=== PATIENT | male | born 1955 | race Caucasian/White ===

== ENCOUNTER 2022-05-25 11:53 | Emergency (ER) | payer MEDICARE, BC, SELFPAY ==
--- NOTE | ~2022-05-25 | CT_ITS ---
EXAMINATION: CT lumbar spine wo con DATE: 05/25/2022 14:04 INDICATION: Low back pain for 3 days TECHNIQUE: Computed tomography (CT) of the lumbar spine was performed without intravenous contrast. A utomated exposure control and iterative reconstruction technique were employed. Exam dose: 454.60 mG y-cm total exam DLP. COMPARISON: None FINDINGS: Normal alignment lumbar spine. No fracture or bone destruction, spondylolysis or spondyloli sthesis. No primary lumbar spinal stenosis. There is mild to moderate degenerative spurring of the lumbar spine. The lumbar and lumbosacral inter spaces appear relatively well preserved. There is degenerative change at the apophyseal joints. IMPRESSION: Mild degenerative change Reviewed, dictated and finalized at [facility] Reviewed, dictated and finalized at [facility] [employer]ICAL SERVICES MANAGER IMPRESSION: Mild degenerative change
[2022-05-25 11:57] VITALS: BP 188/84; PULSE 80; RESP 20; TEMP 36.7; O2SAT 98
--- NOTE | 2022-05-25 13:41 | ED.BACK ---
HPI - Back Pain/Injury General Chief Complaint: Back Pain/Injury Stated Complaint: cold symptoms Time Seen by Provider: 05/25/22 12:11 Source: patient Mode of arrival: ambulatory Limitations: no limitations History of Present Illness HPI Narrative: Patient is a 67 y/o male who presents to the ED with c/o low back pain. Patient reports he developed pain in his low back on Thursday. Pain initially began around level of waistline and has radiated upward and slightly to the right over the last couple of days. He denies any injury, fall, strenuous activity, heavy lifting. He has been taking Jenny back and body and using a heating pad with temporary relief. Patient denies history of similar back pain. Denies abdominal pain, nausea, vomiting, fevers, bowel or bladder incontinence, numbness, weakness. Related Data Home Medications Medication Instructions Recorded Confirmed Panax ginseng root 518 mg capsule 518 mg PO .QD 12/31/21 12/31/21 ascorbic acid (vitamin C) 500 mg 500 mg PO .QD 12/31/21 12/31/21 capsule atorvastatin 20 mg tablet 20 mg PO .QD 12/31/21 12/31/21 cholecalciferol (vitamin D3) 125 125 mcg PO .QD 12/31/21 12/31/21 mcg (5,000 unit) capsule cinnamon bark 500 mg capsule 500 mg PO .QD 12/31/21 12/31/21 (Cinnamon) metformin 500 mg tablet,extended 500 mg PO TID 12/31/21 12/31/21 release 24hr omega-3 fatty acids 1,250 mg 1,250 mg PO .QD 12/31/21 12/31/21 capsule prasterone (dhea) 25 mg capsule 25 mg PO .QD 12/31/21 12/31/21 (DHEA) testosterone 20.25 mg/1.25 gram 4 pump topical .QD 12/31/21 12/31/21 (1.62 %) transdermal gel pump turmeric 400 mg capsule 400 mg PO .QD 12/31/21 12/31/21 Allergies Allergy/AdvReac Type Severity Reaction Status Date / Time No Known Allergies Allergy Verified 12/31/21 15:13 Review of Systems Review of Systems: CONSTITUTIONAL: Denies fever, chills, or sweats. CARDIOVASCULAR: Denies chest pain. RESPIRATORY: Denies dyspnea. GASTROINTESTINAL: Denies incontinence, abdominal pain, nausea, vomiting, or diarrhea. GENITOURINARY: Denies incontinence, dysuria or hematuria. MUSCULOSKELETAL: See HPI. NEUROLOGIC: See HPI. All systems reviewed & are unremarkable except as noted in HPI and below PMFSH Past Medical History Medical History (Updated 05/25/22 @ 15:43 by Yaz English PA-C) Anemia Cardiomegaly Diabetes type 2, uncontrolled Essential (primary) hypertension Histoplasmosis Impetigo Mixed hyperlipidemia Thyroid enlargement Surgical History Surgical History (Updated 05/25/22 @ 14:06 by Yaz English PA-C) History of colonoscopy Family History Family History Father Hypertension Mother Hypertension Family history of diabetes mellitus in first degree relative Other Family history of malignant neoplasm Social History Social History Smoking status: Never smoker Alcohol intake: current Exam Narrative: GENERAL: Well appearing, well-nourished, non-toxic, in no acute distress. HEAD: Normocephalic, atraumatic. NECK: Supple. No adenopathy, no masses. RESPIRATORY: Airway patent, respirations nonlabored. Clear to auscultation bilaterally, no rales, rhonchi, wheezing. CARDIOVASCULAR: Regular rate and rhythm without murmurs, rubs, or gallops. Radial pulses 2+ and equal bilaterally. ABDOMINAL: Soft, nontender, nondistended, no hepatosplenomegaly. Normoactive BS. MUSCULOSKELETAL: Moves all extremities. Strength/ROM intact without gross deformities. Strength equal in lower extremities bilaterally. Minimal lower lumbar midline spinal tenderness. No step-offs or palpable bony deformities. Mild right-sided paraspinal muscle tenderness in lumbosacral region, reproducing pain. SKIN: Warm, dry, normal color. No rashes. NEURO: A&O X3. Speech clear. Cranial nerves II-XII grossly intact. Steady gait. No ataxic movements. PSYCHIATRIC: Ap
[2022-05-25] MEDS: KETOROLAC 30 MG/ML VIAL (*BKC) IM (14:05)
== END 2022-05-25 16:50 | disposition home or self-care (01) ==
PROVIDERS: Emergency Provider Physician Assistant; PCP Family Medicine
DX: S39.012A Strain of muscle, fascia and tendon of lower back, initial encounter (principal); E11.9 Type 2 diabetes mellitus without complications; I10 Essential (primary) hypertension; E78.2 Mixed hyperlipidemia; E04.9 Nontoxic goiter, unspecified; Z86.2 Personal history of diseases of the blood and blood-forming organs and certain disorders involving the immune mechanism; Z79.84 Long term (current) use of oral hypoglycemic drugs; M47.816 Spondylosis without myelopathy or radiculopathy, lumbar region; X58.XXXA Exposure to other specified factors, initial encounter
CPT/HCPCS: 72131; 96372; 99284; J1885

== ENCOUNTER 2024-11-02 12:06 | Observation (INO) | payer MEDICARE, BC, SELFPAY ==
--- NOTE | ~2024-11-02 | CT_ITS ---
CT brain wo con Ordering provider: Raquel West PA-C History: 69 years Male with . headache . Comparison: November 02, 2018 Technique: CT of the head without contrast. Radiation reduction technique utilized. The dose-length p roduct was 681 mGy-cm. FINDINGS: BRAIN PARENCHYMA AND CSF SPACES: No midline shift, mass effect or hemorrhage. The brain parenchyma a nd CSF spaces are otherwise normal. VISUALIZED PARANASAL SINUSES: Bilateral maxillary and left sphenoid sinus disease. MASTOIDS: Well aerated. BONES: The bones appear intact. SOFT TISSUES: Visualized nasopharynx is normal. Superficial soft tissues are normal. IMPRESSION: No acute intracranial findings. Reviewed, dictated and finalized at location A.
[2024-11-02 12:10] VITALS: BP 173/79; PULSE 67; RESP 16; TEMP 36.9; O2SAT 99
--- NOTE | 2024-11-02 13:19 | ECG_ITS ---
Test Date: 2024-11-02 13:39:02 Measurements Intervals [place] Rate: 62 P: 62 VT: 151 QRS: -67 QRSD: 162 T: 31 QT: 435 QTc: 444 Interpretive Statements SINUS RHYTHM POSSIBLE LEFT ATRIAL ENLARGEMENT RIGHT BUNDLE BRANCH BLOCK LEFT ANTERIOR FASCICULAR BLOCK ABNORMAL ECG No previous ECG available for comparison Electronically Signed On 11-02-2024 14:30:22 CDT by Jr Lee D.O.
--- NOTE | 2024-11-02 13:32 | ED_ITS ---
HPI - General Adult General Chief complaint: Nausea/Vomiting/Diarrhea <Raquel West PA-C - Last Filed: 11/07/24 17:19> Stated complaint: headache and vomiting since yesterday r/t heat <Raquel West PA-C - Last Filed: 11/07/24 17:19> Time Seen by Provider: 11/02/24 13:15 <Raquel West PA-C - Last Filed: 11/07/24 17:19> Source: patient <Raquel West PA-C - Last Filed: 11/07/24 17:19> Mode of arrival: ambulatory <Raquel West PA-C - Last Filed: 11/07/24 17:19> Limitations: no limitations <Raquel West PA-C - Last Filed: 11/07/24 17:19> History of Present Illness HPI narrative: This is a 69 year old male that presents to the ER for possible dehydration. Reports he worked outside all day yesterday. Reports lightheadedness, headache, nausea, vomiting. Denies chest pain, shortness of breath. <Raquel West PA-C - Last Filed: 11/07/24 17:19> Related Data Home medications: Home Medications ?Medication ?Instructions ?Recorded ?Confirmed ?Last Taken ?Type Panax ginseng root 518 mg capsule 518 mg PO .QD 12/31/21 11/03/24 11/02/24 History cinnamon bark 500 mg capsule 500 mg PO .QD 12/31/21 11/03/24 11/02/24 History (Cinnamon) omega-3 fatty acids 1,250 mg 1,250 mg PO .QD 12/31/21 11/03/24 11/02/24 History capsule turmeric 400 mg capsule 400 mg PO .QD 12/31/21 11/03/24 11/02/24 History multivit with min #53-FA 200 1 cap PO DAILY 10/19/23 11/03/24 11/02/24 History mcg-vit K 1,000 mcg-coQ10 10 mg capsule prasterone (DHEA) 25 mg tablet 25 mg PO DAILY 06/07/24 11/03/24 11/02/24 History (DHEA) testosterone 2 pump topical .QD 06/07/24 11/03/24 11/02/24 History coenzyme Q10 200 mg capsule (Co 200 mg PO DAILY 08/16/24 11/03/24 11/02/24 History Q-10) saw palmetto 500 mg capsule 500 mg PO DAILY 08/16/24 11/03/24 11/02/24 History zinc sulfate 50 mg zinc (220 mg) 50 mg PO DAILY 08/16/24 11/03/24 11/02/24 History capsule (Orazinc) metformin 500 mg tablet,extended 500 mg PO TID 08/30/24 11/03/24 11/02/24 History release 24hr (osmotic) atorvastatin 20 mg tablet 10 mg PO DAILY 11/03/24 11/03/24 11/02/24 History <Raquel West PA-C - Last Filed: 11/07/24 17:19> Allergies/adverse reactions: Allergies Allergy/AdvReac Type Severity Reaction Status Date / Time mold Allergy Mild Unknown Verified 11/02/24 12:12 <Raquel West PA-C - Last Filed: 11/07/24 17:19> Review of Systems 2 Review of Systems: All systems reviewed & are unremarkable except as noted in HPI and below <Raquel West PA-C - Last Filed: 11/07/24 17:19> [facility] Past Medical History Medical History: Medical History Low 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 BMI 26.0-26.9,adult Lymphoma involving lung Thyroid enlargement Mixed hyperlipidemia Impetigo Histoplasmosis Essential (primary) hypertension Diabetes type 2, uncontrolled Cardiomegaly Anemia <Raquel West PA-C - Last Filed: 11/07/24 17:19> Surgical History Surgical History: Surgical History Hx of ultrasound guided needle biopsy of lung History of colonoscopy <Raquel West PA-C - Last Filed: 11/07/24 17:19> Family History Family History: Family History Father Hypertension FH: kidney cancer Diabetes mellitus Mother Hypertension Family history of diabetes mellitus in first degree relative Brain cancer Diabetes mellitus Sibling Diabetes mellitus Other Family history of malignant neoplasm <Raquel West PA-C - Last Filed: 11/07/24 17:19> Social History Social History: Social History Smoking status: Never smoker Second hand tobacco smoke exposure: No Alcohol intake: never Substance use: never Substance use type: does not use Do You Feel Safe in your Home?: Yes Lack of Transportation: No Lack of Food: Never True Current Housing: I Have Housing Concerned About Future Housing: No Difficulty Paying Gas/Electric Bills: No Difficulty Paying for Meds: No Currently Unemployed: No Education: High School Diploma/GED Difficulty w/ Childcare or Family Care: No Living arrangements: with family Occupation/Education: retired 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 Gender identity (if verbalized by the patient): Male Spiritual care concerns: Yes (Prataylor) <Raquel West PA-C - Last Filed: 11/07/24 17:19> Exam 2 Narrative: GENERAL: Well-appearing, well-nourished, and in no acute distress. HEAD: Normocephalic, atraumatic. EYES: EOMI. ENT: Nares clear, no rhinorrhea or epistaxis. Mucous membranes moist. Oropharynx without tonsillar hypertrophy exudate or other lesions. Bilateral TMs pearly goodwin non-bulging NECK: Supple. No adenopathy or masses. CHEST: Clear to auscultation. No respiratory distress. No wheezes rales or rhonchi HEART: Regular rate and rhythm. No murmur heard. Normal peripheral pulses. EXTREMITIES: Normal range of motion. No edema. Strength equal in bilateral upper and lower extremities (5/5) SKIN: Warm, dry, no rash. NEURO: No focal deficits. Alert and oriented x3. CN II-XII grossly intact PSYCH: Normal mood and affect <Raquel West PA-C - Last Filed: 11/07/24 17:19> Course Course Emergency Course: Patient reports some improvement after migraine cocktail, although is still endorsing headache. He does report history of migraines <Raquel West PA-C - Last Filed: 11/07/24 17:19> BRAKE PRESS OPERATOR/PA Physician Supervision For this patient encounter, I reviewed the BRAKE PRESS OPERATOR or PA documentation, treatment plan, and medical decision making <Duran Paige MD - Last Filed: 11/02/24 22:29> Consultations Consultation #1: Spoke with hospitalist about patient and workup who accepts admission < Raquel West PA-C - Last Filed: 11/07/24 17:19> Date: 11/02/24 <Raquel West PA-C - Last Filed: 11/07/24 17:19> Vital Signs Vital signs: Vital Signs Temperature 98.4 F 11/02/24 12:10 Pulse Rate 67 11/02/24 12:10 Respiratory Rate 16 11/02/24 12:10 Blood Pressure 173/79 H 11/02/24 12:10 Pulse Oximetry 99 11/02/24 12:10 Oxygen Delivery Room Air 11/02/24 12:10 Temperature 99.5 F 11/03/24 05:26 Pulse Rate 62 11/03/24 08:00 Respiratory Rate 14 11/03/24 08:00 Blood Pressure 128/75 11/03/24 05:26 Pulse Oximetry 100 11/03/24 08:00 Oxygen Delivery Room Air 11/03/24 08:00 <Raquel West PA-C - Last Filed: 11/07/24 17:19> Vital Signs Temperature 98.4 F 11/02/24 12:10 Pulse Rate 67 11/02/24 12:10 Respiratory Rate 16 11/02/24 12:10 Blood Pressure 173/79 H 11/02/24 12:10 Pulse Oximetry 99 11/02/24 12:10 Oxygen Delivery Room Air 11/02/24 12:10 Temperature 99.5 F 11/03/24 05:26 Pulse Rate 62 11/03/24 08:00 Respiratory Rate 14 11/03/24 08:00 Blood Pressure 128/75 11/03/24 05:26 Pulse Oximetry 100 11/03/24 08:00 Oxygen Delivery Room Air 11/03/24 08:00 <Duran Paige MD - Last Filed: 11/02/24 22:29> Medical Decision Making MDM Narrative Medical decision making narrative: Patient presents the emergency department for headache ongoing since last night. Reports he had worked outside most of the day. Endorses feeling dehydrated. Does report history of migraine headaches. He is afebrile and nontoxic appearing. His vitals are stable. CBC with white blood cell count of 10.2. Metabolic panel with mild evidence of dehydration. Urine also showing 2+ ketones. CT brain without acute findings. Patient was given migraine cocktail with some relief, although still endorsing discomfort, continued headache. Hospitalist was consulted for admission for further management/evaluation <Raquel West PA-C - Last Filed: 11/07/24 17:19> Differential Diagnosis Differential Diagnosis: Migraine, tension headache, dehydration, electrolyte derangement <Raquel West PA-C - Last Filed: 11/07/24 17:19> Vital Signs Vital Signs: Vital Signs Temperature 98.4 F 11/02/24 12:10 Pulse Rate 67 11/02/24 12:10 Respiratory Rate 16 11/02/24 12:10 Blood Pressure 173/79 H 11/02/24 12:10 Pulse Oximetry 99 11/02/24 12:10 Oxygen Delivery Room Air 11/02/24 12:10 Temperature 99.5 F 11/03/24 05:26 Pulse Rate 62 11/03/24 08:00 Respiratory Rate 14 11/03/24 08:00 Blood Pressure 128/75 11/03/24 05:26 Pulse Oximetry 100 11/03/24 08:00 Oxygen Delivery Room Air 11/03/24 08:00 <Raquel West PA-C - Last Filed: 11/07/24 17:19> Vital Signs Temperature 98.4 F 11/02/24 12:10 Pulse Rate 67 11/02/24 12:10 Respiratory Rate 16 11/02/24 12:10 Blood Pressure 173/79 H 11/02/24 12:10 Pulse Oximetry 99 11/02/24 12:10 Oxygen Delivery Room Air 11/02/24 12:10 Temperature 99.5 F 11/03/24 05:26 Pulse Rate 62 11/03/24 08:00 Respiratory Rate 14 11/03/24 08:00 Blood Pressure 128/75 11/03/24 05:26 Pulse Oximetry 100 11/03/24 08:00 Oxygen Delivery Room Air 11/03/24 08:00 <Duran Paige MD - Last Filed: 11/02/24 22:29> Lab Data Lab results reviewed: Yes I reviewed the patient's lab results. <Raquel West PA-C - Last Filed: 11/07/24 17:19> Result diagrams: 11/03/24 06:55 11/03/24 06:55 <Raquel West PA-C - Last Filed: 11/07/24 17:19> Labs: Lab Results 11/02/24 11/02/24 11/02/24 Range/Units 13:34 14:21 18:42 WBC 10.8 H (4.5-10.0) K/mm3 RBC 4.88 (4.6-6.20) M/mm3 Hgb 14.6 (14.0-18.0) g/dL Hct 44.5 (42.0-52.0) % MCV 91.2 (80-100) fl MCH 29.9 (26-34) pg MCHC 32.8 (32-36) g/dl RDW 12.9 (11.5-14.5) % Plt Count 203 (150-375) k/mm3 MPV 9.6 (7.4-10.4) fl Immature Gran % (Auto) 0.3 (0-0.5) % Neut % (Auto) 91.4 H (45.5-73.1) % Lymph % (Auto) 4.9 L (18.3-44.2) % [place] % (Auto) 3.3 (2.6-8.5) % Eos % (Auto) 0.0 (0-4.4) % Baso % (Auto) 0.1 L (0.2-1.2) % Lymph # (Auto) 0.53 L (0.9-3.2) K/mm3 [place] # (Auto) 0.4 (0.1-0.6) K/mm3 Eos # (Auto) 0.0 (0-0.3) K/mm3 Baso # (Auto) 0.0 (0.0-0.1) K/mm3 Abs Immat Gran (auto) 0.03 (0.00-0.031) K/mm3 Absolute Neuts (auto) 9.9 H (1.3-6.7) K/mm3 Absolute Nucleated RBC 0.000 (0.0-0.012) K/mm3 Nucleated RBC % 0.0 (0.0-0.2) % ESR 8 (0-20) mm/hr Sodium 140 (137-145) mmol/L Potassium 4.2 (3.4-5.0) mmol/L Chloride 107 (98-107) mmol/L Carbon Dioxide 21 L (22-30) mmol/L Anion Gap 12 (4-12) mmol/L BUN 22 H (9-20) mg/dL Creatinine 0.79 (0.7-1.3) mg/dL Estim Creat Clear Calc 67 ml/min Estimated GFR > 60 (59 - ) Glucose 199 H (65-110) mg/dL POC Capillary Glucose 146 H (65-105) mg/dl Hemoglobin A1c 6.3 H (<5.7) % Calcium 9.7 (8.4-10.2) mg/dL Magnesium 1.7 (1.6-2.3) mg/dL Total Bilirubin 0.5 (0.2-1.3) mg/dL AST 27 (17-59) U/L ALT 32 (6-50) U/L Alkaline Phosphatase 51 (38-126) U/L Total Creatine Kinase 209 H (55-170) U/L C-Reactive Protein < 0.5 (<1.0) mg/dL Total Protein 6.9 (6.3-8.2) g/dL Albumin 4.3 (3.5-5.1) g/dL Lipase 363 H (23-300) U/L Urine Color Yellow (Yellow) Urine Appearance Clear (Clear) Urine pH 5.5 (5.0-9.0) Ur Specific [place] 1.028 (1.001-1.035) Urine Protein 1+ H (Negative) mg/dL Urine Glucose (UA) 3+ H (Negative) mg/dL Urine Ketones 2+ H (Negative) mg/dL Ur Blood (Man) Negative (Negative) Urine Nitrate Negative (Negative) Urine Bilirubin Negative (Negative) Urine Urobilinogen 0.2 (<2.0) mg/dL Leukocyte Esterase Rfl Negative (Negative) AMAYA/UL Urine RBC 0-2 (0-2) /hpf Urine WBC 0-5 (0-3) /hpf Ur Squamous Epith Cells None seen (Few) /hpf Urine Bacteria None seen /hpf Urine Casts 0-2 <Raquel West PA-C - Last Filed: 11/07/24 17:19> Lab Results 11/02/24 11/02/24 11/02/24 Range/Units 13:34 14:21 18:42 WBC 10.8 H (4.5-10.0) K/mm3 RBC 4.88 (4.6-6.20) M/mm3 Hgb 14.6 (14.0-18.0) g/dL Hct 44.5 (42.0-52.0) % MCV 91.2 (80-100) fl MCH 29.9 (26-34) pg MCHC 32.8 (32-36) g/dl RDW 12.9 (11.5-14.5) % Plt Count 203 (150-375) k/mm3 MPV 9.6 (7.4-10.4) fl Immature Gran % (Auto) 0.3 (0-0.5) % Neut % (Auto) 91.4 H (45.5-73.1) % Lymph % (Auto) 4.9 L (18.3-44.2) % [place] % (Auto) 3.3 (2.6-8.5) % Eos % (Auto) 0.0 (0-4.4) % Baso % (Auto) 0.1 L (0.2-1.2) % Lymph # (Auto) 0.53 L (0.9-3.2) K/mm3 [place] # (Auto) 0.4 (0.1-0.6) K/mm3 Eos # (Auto) 0.0 (0-0.3) K/mm3 Baso # (Auto) 0.0 (0.0-0.1) K/mm3 Abs Immat Gran (auto) 0.03 (0.00-0.031) K/mm3 Absolute Neuts (auto) 9.9 H (1.3-6.7) K/mm3 Absolute Nucleated RBC 0.000 (0.0-0.012) K/mm3 Nucleated RBC % 0.0 (0.0-0.2) % ESR 8 (0-20) mm/hr Sodium 140 (137-145) mmol/L Potassium 4.2 (3.4-5.0) mmol/L Chloride 107 (98-107) mmol/L Carbon Dioxide 21 L (22-30) mmol/L Anion Gap 12 (4-12) mmol/L BUN 22 H (9-20) mg/dL Creatinine 0.79 (0.7-1.3) mg/dL Estim Creat Clear Calc 67 ml/min Estimated GFR > 60 (59 - ) Glucose 199 H (65-110) mg/dL POC Capillary Glucose 146 H (65-105) mg/dl Hemoglobin A1c 6.3 H (<5.7) % Calcium 9.7 (8.4-10.2) mg/dL Magnesium 1.7 (1.6-2.3) mg/dL Total Bilirubin 0.5 (0.2-1.3) mg/dL AST 27 (17-59) U/L ALT 32 (6-50) U/L Alkaline Phosphatase 51 (38-126) U/L Total Creatine Kinase 209 H (55-170) U/L C-Reactive Protein < 0.5 (<1.0) mg/dL Total Protein 6.9 (6.3-8.2) g/dL Albumin 4.3 (3.5-5.1) g/dL Lipase 363 H (23-300) U/L Urine Color Yellow (Yellow) Urine Appearance Clear (Clear) Urine pH 5.5 (5.0-9.0) Ur Specific [place] 1.028 (1.001-1.035) Urine Protein 1+ H (Negative) mg/dL Urine Glucose (UA) 3+ H (Negative) mg/dL Urine Ketones 2+ H (Negative) mg/dL Ur Blood (Man) Negative (Negative) Urine Nitrate Negative (Negative) Urine Bilirubin Negative (Negative) Urine Urobilinogen 0.2 (<2.0) mg/dL Leukocyte Esterase Rfl Negative (Negative) AMAYA/UL Urine RBC 0-2 (0-2) /hpf Urine WBC 0-5 (0-3) /hpf Ur Squamous Epith Cells None seen (Few) /hpf Urine Bacteria None seen /hpf Urine Casts 0-2 <Duran Paige MD - Last Filed: 11/02/24 22:29> Imaging Data Radiologist's impression: ITS Impressions Head CT 11/02/24 16:47 IMPRESSION: No acute intracranial findings. <Raquel West PA-C - Last Filed: 11/07/24 17:19> ECG Data EKG #1: ECG completion date: 11/02/24 <Raquel West PA-C - Last Filed: 11/07/24 17:19> EKG Interpretation: normal rate, sinus rhythm, no ST changes and normal QT <Raquel West PA-C - Last Filed: 11/07/24 17:19> Critical Care Time Critical Care Time Critical Care Time: No <Raquel West PA-C - Last Filed: 11/07/24 17:19> Discharge Plan Discharge Clinical Impression: Intractable migraine Qualifiers: Migraine type: unspecified Status migrainosus presence: without status migrainosus Qualified Code(s): G43.919 - Migraine, unspecified, intractable, without status migrainosus <Raquel West PA-C - Last Filed: 11/07/24 17:19> Patient Disposition: Still a Patient <Raquel West PA-C - Last Filed: 11/07/24 17:19> Condition: Stable <Raquel West PA-C - Last Filed: 11/07/24 17:19>
[2024-11-02] MEDS: SODIUM CHLORIDE 0.9% IV 1,000 ML 999 ML IV CONT ×2 (13:37→15:26)
[2024-11-02] MEDS: ONDANSETRON INJ 4 MG/2 ML VIAL IV PUSH (13:37)
[2024-11-02 13:45] LABS: Basophils Percent Auto 0.1 % (0.2-1.2); Hematocrit 44.5 % (42.0-52.0); Hemoglobin 14.6 g/dL (14.0-18.0); Immature Granulocyte Absolute 0.03 K/mm3 (0.00-0.031); Immature Granulocyte Percent A 0.3 % (0-0.5); Lymphocytes Absolute Auto 0.53 K/mm3 (0.9-3.2); Lymphocytes Percent Auto 4.9 % (18.3-44.2); Mean Corpuscular HGB Conc 32.8 g/dl (32-36); Mean Corpuscular Hemoglobin 29.9 pg (26-34); Mean Corpuscular Volume 91.2 fl (80-100); Mean Platelet Volume 9.6 fl (7.4-10.4); Monocytes Absolute Auto 0.4 K/mm3 (0.1-0.6); Monocytes Percent Auto 3.3 % (2.6-8.5); Neutrophils Absolute Auto 9.9 K/mm3 (1.3-6.7); Neutrophils Percent Auto 91.4 % (45.5-73.1); Platelet Count Result 203 k/mm3 (150-375); Red Blood Count 4.88 M/mm3 (4.6-6.20); Red Cell Distribution Width 12.9 % (11.5-14.5); White Blood Count 10.8 K/mm3 (4.5-10.0)
[2024-11-02 13:55] LABS: Alanine Aminotransferase 32 U/L (6-50); Albumin Level 4.3 g/dL (3.5-5.1); Alkaline Phosphatase 51 U/L (38-126); Anion Gap 12 mmol/L (4-12); Aspartate Amino Transferase 27 U/L (17-59); Bilirubin,Total 0.5 mg/dL (0.2-1.3); Blood Urea Nitrogen 22 mg/dL (9-20); Calcium 9.7 mg/dL (8.4-10.2); Carbon Dioxide 21 mmol/L (22-30); Chloride 107 mmol/L (98-107); Creatine Kinase 209 U/L (55-170); Estimated CRCL calculation 67 ml/min; Estimated Glomerular Filt Rate > 60; Glucose 199 mg/dL (65-110); Lipase 363 U/L (23-300); Potassium 4.2 mmol/L (3.4-5.0); Sodium 140 mmol/L (137-145); Total Protein 6.9 g/dL (6.3-8.2)
[2024-11-02 14:30] LABS: Add Urine Microscopic? YES; Appearance Urine Clear (Clear); Bacteria Urine None Seen /hpf; Bilirubin Urine Negative (Negative); Blood Urine Negative (Negative); Color Urine Yellow (Yellow); Glucose Urine UA 3+ mg/dL (Negative); Ketones Urine 2+ mg/dL (Negative); Leukocyte Esterase Ur Negative LEU/UL (Negative); Nitrate Urine Negative (Negative); Non Pathogenic Casts 0-2; Protein Urine 1+ mg/dL (Negative); RBC Urine 0-2 /hpf (0-2); Specific Grav Ur 1.028 (1.001-1.035); Squamous Epithelial Cell Urine None Seen /hpf (Few); Urobilinogen Urine 0.2 mg/dL (<2.0); WBC Urine 0-5 /hpf (0-3); pH Urine 5.5 (5.0-9.0)
[2024-11-02] MEDS: ACETAMINOPHEN 500 MG TABLET 1000 MG PO (14:39)
[2024-11-02] MEDS: METOCLOPRAMIDE HCL INJ 10 MG/2 ML VIAL IV PUSH (15:26)
[2024-11-02] MEDS: FAMOTIDINE 20 MG/2 ML VIAL IV PUSH (15:26)
[2024-11-02] MEDS: diphenhydrAMINE HCl INJ 50 MG/ML VIAL 25 MG IV PUSH (15:26)
--- NOTE | 2024-11-02 16:32 | PC.NURSE ---
Pt to CT at this time
[2024-11-02] MEDS: KETOROLAC 15 MG/ML VIAL (*BKC) IV PUSH (17:25)
[2024-11-02] MEDS: dexAMETHasone SOD PHOS INJ 10 MG/ML 1 ML VIAL IV PUSH (18:29)
[2024-11-02 18:45] LABS: Glucose Point of Care 146 mg/dl (65-105)
[2024-11-02 19:54] LABS: CRP < 0.5 mg/dL (<1.0); Magnesium 1.7 mg/dL (1.6-2.3)
[2024-11-02 20:04] LABS: Erythrocyte Sedimentation Rate 8 mm/hr (0-20)
[2024-11-02 20:17] VITALS: BP 142/80; PULSE 59; RESP 12; O2SAT 99
--- NOTE | 2024-11-02 20:32 | P.HP_ITS ---
H&P: HPI History of Present Illness Date/Time: 11/02/24 23:00 Chief Complaint: Intractable headache, nausea/vomiting, heat exhaustion Narrative: The patient presents with a severe, diffuse headache, described as most intense behind the eyes and between the temples, radiating to the back and down both sides of the neck. The headache is associated with a sensation of pressure and was described by the patient as a severe sinus migraine. It is similar to a previous episode experienced during a heat stroke three years ago, and the patient normally has almost no headaches. 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 He worked from approximately 8:30 AM to 11 AM, then resumed from 12:30 PM or 1 PM until 4 PM, with significant heat exposure and exertion, noting he tried to work too hard, too fast, too much. The patient reports profuse sweating followed by cessation of sweating, which he recognized as a sign of heat exhaustion, prompting him to stop working, though he felt it was pretty much too late. This was followed by the onset of nausea, vomiting (unable to keep any food or water down), and headache. No diarrhea was reported. The patient was unable to take aspirin or Tylenol as they kept coming back up due to vomiting. Symptoms persisted through the night, despite the patient attempting self-management with healing touch and throwing the energy off. The headache and nausea improved after receiving IV fluids and a series of medications in the hospital, including Benadryl and a steroid, which provided temporary relief before symptoms returned, necessitating a final injection that pretty well stopped them. The patient was able to tolerate jello, crackers, pretzels, and water after treatment and has not vomited since. Pertinent negatives: No prior frequent headaches or migraines, no chest pain, no shortness of breath, no abdominal pain, no diarrhea, no urinary retention history, no severe muscle aches, and no known medication allergies. Relevant history includes type 2 diabetes (A1c 7.0, usually well-controlled with home readings of 115-120, though recent blood sugar was 199 in blood tubes, despite a finger stick reading of 145; patient notes high sugar can cause headaches and stress elevates blood sugar). He has stable lymphoma/lung cancer (diagnosed ~7 years ago, managed at [facility], with a recent oncology follow-up a week ago). Recent medication changes include starting Januvia one month ago (one pill in the morning) as the effectiveness of metformin (500 mg TID for 7 years, total 1500mg/day) was wearing off. He also recently started atorvastatin for cholesterol, which was a little high. No history of heart problems. No recent hospitalizations except for a similar heat stroke episode three years ago. 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 Review of Systems Review of Systems: All systems reviewed & are unremarkable except as noted in HPI and below PMFSH Past Medical History Medical History Low 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 BMI 26.0-26.9,adult Lymphoma involving lung Thyroid enlargement Mixed hyperlipidemia Impetigo Histoplasmosis Essential (primary) hypertension Diabetes type 2, uncontrolled Cardiomegaly Anemia Surgical History Surgical History Hx of ultrasound guided needle biopsy of lung History of colonoscopy Family History Family History Father Hypertension FH: kidney cancer Diabetes mellitus Mother Hypertension Family history of diabetes mellitus in first degree relative Brain cancer Diabetes mellitus Sibling Diabetes mellitus Other Family history of malignant neoplasm Social History Social History Smoking status: Never smoker Second hand tobacco smoke exposure: No Alcohol intake: never Substance use: never Substance use type: does not use Do You Feel Safe in your Home?: Yes Lack of Transportation: No Lack of Food: Never True Current Housing: I Have Housing Concerned About Future Housing: No Difficulty Paying Gas/Electric Bills: No Difficulty Paying for Meds: No Currently Unemployed: No Education: High School Diploma/GED Difficulty w/ Childcare or Family Care: No Living arrangements: with family Occupation/Education: retired 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 Gender identity (if verbalized by the patient): Male Spiritual care concerns: Yes (Pravasin) Meds Home Medications and Allergies Home Medications ?Medication ?Instructions ?Recorded ?Confirmed ?Type Panax ginseng root 518 mg capsule 518 mg PO .QD 12/31/21 08/16/24 History cinnamon bark 500 mg capsule 500 mg PO .QD 12/31/21 08/16/24 History (Cinnamon) omega-3 fatty acids 1,250 mg 1,250 mg PO .QD 12/31/21 08/16/24 History capsule turmeric 400 mg capsule 400 mg PO .QD 12/31/21 08/16/24 History multivit with min #53-FA 200 cap PO 10/19/23 08/16/24 History mcg-vit K 1,000 mcg-coQ10 10 mg capsule prasterone (DHEA) 25 mg tablet 25 mg PO DAILY 06/07/24 08/16/24 History (DHEA) testosterone 2 pump topical .QD 06/07/24 08/16/24 History coenzyme Q10 200 mg capsule (Co 200 mg PO DAILY 08/16/24 08/16/24 History Q-10) saw palmetto 500 mg capsule 500 mg PO DAILY 08/16/24 08/16/24 History sitagliptin phosphate 100 mg 100 mg PO DAILY #90 tabs 08/16/24 08/16/24 Rx tablet (Januvia) zinc sulfate 50 mg zinc (220 mg) 50 mg PO DAILY 08/16/24 08/16/24 History capsule (Orazinc) metformin 500 mg tablet,extended 1,500 mg PO DAILY 08/30/24 History release 24hr (osmotic) blood sugar diagnostic (Contour #100 ea 10/13/24 10/13/24 Rx Test Strips) lancets 31 gauge #100 ea 10/17/24 Rx Allergies Allergy/AdvReac Type Severity Reaction Status Date / Time mold Allergy Mild Unknown Verified 11/02/24 12:12 Vital Signs Vital Signs - 24 hr 11/02/24 12:10 11/02/24 20:17 Temperature 36.9 C Pulse Rate 67 59 L Respiratory Rate 16 12 Blood Pressure 173/79 H 142/80 H Pulse Oximetry 99 99 Oxygen Delivery Room Air Exam Narrative: GENERAL: Well-appearing, well-nourished, and in no acute distress. HEAD: Normocephalic, atraumatic, no palpable temporal cord EYES: EOMI. PERRL, no photophobia, no erythema, pupils midrange and equally reactive NECK: Supple. No adenopathy or masses. CHEST: Clear to auscultation. No respiratory distress. No wheezes rales or rhonchi HEART: Regular rate and rhythm. Normal peripheral pulses. EXTREMITIES: Normal range of motion. No edema. Strength equal in bilateral upper and lower extremities (5/5) SKIN: Warm, dry, no rash. NEURO: No focal deficits. Alert and oriented x3. CN II-XII grossly intact PSYCH: Normal mood and affect H&P: Results Labs Labs: Short CBC 11/02/24 Range/Units 13:34 WBC 10.8 H (4.5-10.0) K/mm3 Hgb 14.6 (14.0-18.0) g/dL Hct 44.5 (42.0-52.0) % Plt Count 203 (150-375) k/mm3 BMP 11/02/24 13:34 Sodium 140 Potassium 4.2 Chloride 107 Carbon Dioxide 21 L BUN 22 H Creatinine 0.79 Glucose 199 H Calcium 9.7 Cardiac Enzymes 11/02/24 Range/Units 13:34 Total Creatine Kinase 209 H (55-170) U/L Liver Function 11/02/24 Range/Units 13:34 Total Bilirubin 0.5 (0.2-1.3) mg/dL AST 27 (17-59) U/L ALT 32 (6-50) U/L Alkaline Phosphatase 51 (38-126) U/L Albumin 4.3 (3.5-5.1) g/dL Urine 11/02/24 Range/Units 14:21 Urine Color Yellow (Yellow) Urine Appearance Clear (Clear) Urine pH 5.5 (5.0-9.0) Ur Specific [place] 1.028 (1.001-1.035) Urine Protein 1+ H (Negative) mg/dL Urine Glucose (UA) 3+ H (Negative) mg/dL Pulse Oximetry SpO2 results: 99% on room air Attestation: I personally reviewed and interpreted this pulse oximetry as follows: Interpretation: No need for supplemental oxygenation at this time ECG Attestation: I personally reviewed and interpreted this ECG as follows: ECG completion date: 11/02/24 ECG completion time: 13:39 Prior ECG tracings: not available for review Interpretation: Sinus rhythm rate of 62 NC interval 151 QRS duration 162 right bundle-branch block QTC 444 QRS axis -67 left anterior fascicular block left axis deviation, bifascicular block no STEMI or other acute ischemic changes noted. Imaging CT scan - head: Radiologist's impression: CT brain wo con Ordering provider: Raquel West PA-C History: 69 years Male with . headache . Comparison: November 02, 2018 Technique: CT of the head without contrast. Radiation reduction technique utilized. The dose-length product was 681 mGy-cm. FINDINGS: BRAIN PARENCHYMA AND CSF SPACES: No midline shift, mass effect or hemorrhage. The brain parenchyma and CSF spaces are otherwise normal. VISUALIZED PARANASAL SINUSES: Bilateral maxillary and left sphenoid sinus disease. MASTOIDS: Well aerated. BONES: The bones appear intact. SOFT TISSUES: Visualized nasopharynx is normal. Superficial soft tissues are normal. IMPRESSION: No acute intracranial findings. Reviewed, dictated and finalized at location A. Assessment and Plan Assessment and plan (1) Heat exhaustion: Code(s): T67.5XXA - Heat exhaustion, unspecified, initial encounter Status: Acute Assessment and Plan: -Worked outside in heat for over 8 hours on 11/01 -Initially was sweating, quit sweating but kept working -[place] nausea after finishing work -Emesis in the evening on 11/01 with development of headache -Slept overnight but awoke with same symptoms -Unable to keep down fluids, food or medications -Similar history 3 years ago -Still has not urinated since ER testing -Repeat labs in AM, attention to CK and Renal Function -S/P IV fluid 3 liters bolus and 125 mL/hr ongoing (2) Intractable migraine: Qualifiers: Migraine type: unspecified Status migrainosus presence: without status migrainosus Qualified Code(s): G43.919 - Migraine, unspecified, intractable, without status migrainosus Code(s): G43.919 - Migraine, unspecified, intractable, without status migrainosus Status: Acute Assessment and Plan: -Prior history with heat exhaustion 3 years ago -Multiple medications in ER including ketorolac, Reglan, Benadryl, Decadron, D.H.E (ergotamine) -Patient received 1 mg of Dilaudid on arrival to the floor due to severe pain had returned -Patient was pain free upon evaluation at 11:00 p.m. (3) Diabetes type 2: Code(s): E11.9 - Type 2 diabetes mellitus without complications Status: Acute Assessment and Plan: -Prior A1c 7.1 in clinic a year ago -Metformin 500 mg TID and Januvia 100 mg daily (added a month ago) -Hold metformin and use Mid range SSI, ACHS fingerstick glucose -A1c 6.3 on admit (4) Essential (primary) hypertension: Code(s): I10 - Essential (primary) hypertension Status: Acute Assessment and Plan: -Blood pressure controlled, no currently taking any medication (5) Mixed hyperlipidemia: Code(s): E78.2 - Mixed hyperlipidemia Status: Acute Assessment and Plan: -Taking Emeigh 3 fatty acids Plan -Continue IV hydration, recheck labs in AM -Treat recurrent headache if needed -Nausea is improved, if tolerating diet may discharge tomorrow?? Quality VTE Prophylaxis VTE prophylaxis: pharmacologic ordered (Lovenox) Hospitalist [facility] Advance Care Plan I have confirmed that the patient's Advanced Care Plan is present, code status is documented, or surrogate decision maker is listed in patient medical record.: Yes Medication Reconciliation I have utilized all available resources to obtain, update and review the patients current medications (includes all prescriptions, OTC, herbals, cannabis, and nutritional supplements).: Yes
--- NOTE | 2024-11-02 21:23 | ADMGEN ---
This patient, Jatin Hernandez, was admitted to [facility] Surg Room 332-01. Patient/family oriented to hospital policies and general routines including ID bracelet, bed and alarms, visiting hours, pain management, procedures, bathroom and other care routines, personal items, smoking policy, room service/diet, and visiting hours. Information on how to activate the Rapid Response Team has been discussed. Patient/Family are encouraged to report perceived risks to care and to ask questions if they do not understand what they are told or what they should do.
[2024-11-02 21:33] VITALS: BP 135/79; PULSE 64; RESP 16; TEMP 36.3; O2SAT 99
[2024-11-02] MEDS: HYDROmorphone HCL INJ (*CRX) 2 MG/ML VIAL 1 MG IV PUSH (21:50)
[2024-11-02] MEDS: SODIUM CHLORIDE 0.9% IV 1,000 ML 125 ML IV CONT (21:58)
[2024-11-02 23:37] LABS: Hemoglobin A1C 6.3 % (<5.7)
--- NOTE | 2024-11-02 23:58 | PC.NURSE ---
ERROR: Dilaudid 1mg IV x1 given at 2145 was ordered by hospitalist Tommy Garrett, incorrect provider entered.
[2024-11-03] MEDS: MAGNESIUM SULF 2 GM/WATER 50ML 2 GM/50 ML BAG IVPB (03:53)
[2024-11-03] MEDS: methylPREDNISolone SOD SUCC 1,000 MG in DEXTROSE 5% 100 ML 200 MG IVPB (04:23)
[2024-11-03] MEDS: VALPROATE SODIUM INJ 1,000 MG in DEXTROSE 5% IN WATER 50 ML 60 MG IVPB (04:53)
[2024-11-03 05:26] VITALS: BP 128/75; PULSE 62; RESP 14; TEMP 37.5; O2SAT 100
[2024-11-03] MEDS: SODIUM CHLORIDE 0.9% IV 1,000 ML 125 ML IV CONT (06:17)
[2024-11-03 07:05] LABS: Basophils Percent Auto 0.1 % (0.2-1.2); Hematocrit 44.4 % (42.0-52.0); Hemoglobin 14.1 g/dL (14.0-18.0); Immature Granulocyte Absolute 0.07 K/mm3 (0.00-0.031); Immature Granulocyte Percent A 0.7 % (0-0.5); Lymphocytes Absolute Auto 0.76 K/mm3 (0.9-3.2); Lymphocytes Percent Auto 7.5 % (18.3-44.2); Mean Corpuscular HGB Conc 31.8 g/dl (32-36); Mean Corpuscular Hemoglobin 29.7 pg (26-34); Mean Corpuscular Volume 93.7 fl (80-100); Mean Platelet Volume 9.7 fl (7.4-10.4); Monocytes Absolute Auto 0.2 K/mm3 (0.1-0.6); Monocytes Percent Auto 2.4 % (2.6-8.5); Neutrophils Absolute Auto 9.1 K/mm3 (1.3-6.7); Neutrophils Percent Auto 89.3 % (45.5-73.1); Platelet Count Result 212 k/mm3 (150-375); Red Blood Count 4.74 M/mm3 (4.6-6.20); Red Cell Distribution Width 13.2 % (11.5-14.5); White Blood Count 10.2 K/mm3 (4.5-10.0)
--- NOTE | 2024-11-03 07:19 | PM.IMPN ---
Progress Note: A&P Assessment and Plan (1) Heat exhaustion: Code(s): T67.5XXA - Heat exhaustion, unspecified, initial encounter Status: Acute Assessment and Plan: -Worked outside in heat for over 8 hours on 11/01. Initially was sweating, quit sweating but kept working -[place] nausea after finishing work. Emesis in the evening on 11/01 with development of headache -Unable to keep down fluids, food or medications -Similar history 3 years ago that was related to heat exhaustion -Still has not urinated since ER testing, continue to monitor I/O -Repeat labs in AM, attention to CK and Renal Function -S/P IV fluid 3 liters bolus and 125 mL/hr ongoing (2) Intractable migraine: Qualifiers: Migraine type: unspecified Status migrainosus presence: without status migrainosus Qualified Code(s): G43.919 - Migraine, unspecified, intractable, without status migrainosus Code(s): G43.919 - Migraine, unspecified, intractable, without status migrainosus Status: Acute Assessment and Plan: - Head CT showed no acute intracranial findings -Prior history with heat exhaustion 3 years ago -Multiple medications in ER including ketorolac, Reglan, Benadryl, Decadron, D.H.E (ergotamine) -Patient received 1 mg of Dilaudid on arrival to the floor due to severe pain had returned (3) Diabetes type 2: Code(s): E11.9 - Type 2 diabetes mellitus without complications Status: Acute Assessment and Plan: - hypoglycemia protocol - POC blood glucose ACHS - home medication - Metformin 500 mg TID and Januvia 100 mg daily (added a month ago) - correct regimen ordered - Hold metformin and use Mid range SSI - A1C 6.3 (4) Essential (primary) hypertension: Code(s): I10 - Essential (primary) hypertension Status: Acute Assessment and Plan: - Chronic, no currently taking any medication - blood pressures currently well controlled, continue to monitor Subjective Date/time seen: 11/03/24 07:19 Interval history: 69 year old male with past medical history of HTN, HLD, stable lymphoma/lung cancer (diagnosed ~7 years ago, managed at [facility], with a recent oncology follow-up a week ago)and diabetes presented to the hospital for severe, diffuse headache, described as most intense behind the eyes and between the temples, radiating to the back and down both sides of the neck. Review of Systems Review of Systems: All systems reviewed & are unremarkable except as noted in HPI and below Exam Narrative: AF General: well nourished, well-developed male in no acute respiratory distress who is nontoxic appearing, lying semi recumbent in bed. HEENT: Normocephalic. Atraumatic. Pupils equal round reactive to light. Extraocular movement intact. Sclera clear and anicteric. Nares patent. No oral lesions. Moist mucous membranes. Tongue is midline. Palate danny symmetrically. No facial asymmetry. Neck: Neck was supple. No dominant adenopathy, thyromegaly or masses. 2+ carotid upstrokes without bruits. Chest: Lungs are clear to auscultation bilaterlly. No wheezes or crackles. CV: Heart was regular rate and rhythm. S1/S2. No murmurs, gallops, or rubs. Abd: Abdomen was soft. Nontender. Nondistended. Postive bowel sounds. No organomegaly or masses. Ext: No clubbing, cyanosis, or edema. 2+ DP pulses bilaterally. Neuro: Patient is alert and oriented x4. Strenth is 5/5 in both upper and lower extremities. Cranial nerves 2-12 are intact. Speech is clear. Psych: Normal nood and affect. Patient is pleasant and cooperative. Skin: Warm and dry. No rashes noted. Objective Data Vital Signs Vital Signs: Vital Signs - 24 hr 11/02/24 12:10 11/02/24 20:17 11/02/24 21:33 Temperature 98.4 F 97.4 F L Pulse Rate 67 59 L 64 Respiratory Rate 16 12 16 Blood Pressure 173/79 H 142/80 H 135/79 Pulse Oximetry 99 99 99 Oxygen Delivery Room Air 11/03/24 05:26 Temperature 99.5 F Pulse Rate 62 Respiratory Rate 14 Blood Pressure 128/75 Pulse Oximetry 100 Oxygen Delivery Intake/Output Intake/Output: Intake & Output 10/31/24 11/01/24 11/02/24 11/03/24 23:59 23:59 23:59 23:59 Intake Total 1999 1200 Balance 1999 1200 Meds/Results Medications: Active Medications Generic Name Dose Route Start Last Admin Trade Name Freq PRN Reason Stop Dose Admin Dextrose 12.5 gm 11/02/24 23:16 Dextrose 50% 25 Gm/50 Ml Syringe IV PUSH PRN PRN Hypoglycemia Protocol Enoxaparin Sodium 40 mg 11/03/24 09:00 Enoxaparin 40 Mg/0.4 Ml Syringe SUB-Q DAILY PALLAVI Glucagon 1 mg 11/02/24 23:16 Glucagon For Inj 1 Mg Vial IM PRN PRN Hypoglycemia Protocol Glucose 15 gm 11/02/24 23:16 Glucose Oral Gel 15 Gm Of Glucse In 37.5 Gm Tube PO PRN PRN Hypoglycemia Protocol Sodium Chloride 1,000 mls @ 125 mls/hr 11/02/24 19:15 11/03/24 06:17 Normal Saline Iv IV CONT 125 mls/hr .Q8H PALLAVI Administration Dextrose 1,000 mls @ 100 mls/hr 11/02/24 23:16 Dextrose 5% 1,000 Ml IVPB PRN PRN Hypoglycemia Protocol Insulin Aspart 3 - 6 units 11/03/24 08:00 Insulin Aspart (*Bkc) 100 Units/Ml SUB-Q TIDWM PALLAVI Protocol Radiology Results: ITS Impressions Head CT 11/02/24 16:47 IMPRESSION: No acute intracranial findings. Labs Labs: Laboratory Results - last 24 hr 11/02/24 11/02/24 11/02/24 13:34 14:21 18:42 WBC 10.8 H RBC 4.88 Hgb 14.6 Hct 44.5 MCV 91.2 MCH 29.9 MCHC 32.8 RDW 12.9 Plt Count 203 MPV 9.6 Immature Gran % (Auto) 0.3 Neut % (Auto) 91.4 H Lymph % (Auto) 4.9 L [place] % (Auto) 3.3 Eos % (Auto) 0.0 Baso % (Auto) 0.1 L Lymph # (Auto) 0.53 L [place] # (Auto) 0.4 Eos # (Auto) 0.0 Baso # (Auto) 0.0 Abs Immat Gran (auto) 0.03 Absolute Neuts (auto) 9.9 H Absolute Nucleated RBC 0.000 Nucleated RBC % 0.0 ESR 8 Sodium 140 Potassium 4.2 Chloride 107 Carbon Dioxide 21 L Anion Gap 12 BUN 22 H Creatinine 0.79 Estim Creat Clear Calc 67 Estimated GFR > 60 Glucose 199 H POC Capillary Glucose 146 H Hemoglobin A1c 6.3 H Calcium 9.7 Magnesium 1.7 Total Bilirubin 0.5 AST 27 ALT 32 Alkaline Phosphatase 51 Total Creatine Kinase 209 H C-Reactive Protein < 0.5 Total Protein 6.9 Albumin 4.3 Lipase 363 H Urine Color Yellow Urine Appearance Clear Urine pH 5.5 Ur Specific [place] 1.028 Urine Protein 1+ H Urine Glucose (UA) 3+ H Urine Ketones 2+ H Ur Blood (Man) Negative Urine Nitrate Negative Urine Bilirubin Negative Urine Urobilinogen 0.2 Leukocyte Esterase Rfl Negative Urine RBC 0-2 Urine WBC 0-5 Ur Squamous Epith Cells None seen Urine Bacteria None seen Urine Casts 0-2 11/03/24 06:55 WBC 10.2 H RBC 4.74 Hgb 14.1 Hct 44.4 MCV 93.7 MCH 29.7 MCHC 31.8 L RDW 13.2 Plt Count 212 MPV 9.7 Immature Gran % (Auto) 0.7 H Neut % (Auto) 89.3 H Lymph % (Auto) 7.5 L [place] % (Auto) 2.4 L Eos % (Auto) 0.0 Baso % (Auto) 0.1 L Lymph # (Auto) 0.76 L [place] # (Auto) 0.2 Eos # (Auto) 0.0 Baso # (Auto) 0.0 Abs Immat Gran (auto) 0.07 H Absolute Neuts (auto) 9.1 H Absolute Nucleated RBC 0.000 Nucleated RBC % 0.0 ESR Sodium Potassium Chloride Carbon Dioxide Anion Gap BUN Creatinine Estim Creat Clear Calc Estimated GFR Glucose POC Capillary Glucose Hemoglobin A1c Calcium Magnesium Total Bilirubin AST ALT Alkaline Phosphatase Total Creatine Kinase C-Reactive Protein Total Protein Albumin Lipase Urine Color Urine Appearance Urine pH Ur Specific [place] Urine Protein Urine Glucose (UA) Urine Ketones Ur Blood (Man) Urine Nitrate Urine Bilirubin Urine Urobilinogen Leukocyte Esterase Rfl Urine RBC Urine WBC Ur Squamous Epith Cells Urine Bacteria Urine Casts Quality VTE Prophylaxis VTE prophylaxis: pharmacologic ordered (Lovenox)
[2024-11-03 07:22] LABS: Alanine Aminotransferase 29 U/L (6-50); Albumin Level 3.9 g/dL (3.5-5.1); Alkaline Phosphatase 44 U/L (38-126); Anion Gap 10 mmol/L (4-12); Aspartate Amino Transferase 23 U/L (17-59); Bilirubin,Total 0.6 mg/dL (0.2-1.3); Blood Urea Nitrogen 16 mg/dL (9-20); Calcium 8.7 mg/dL (8.4-10.2); Carbon Dioxide 20 mmol/L (22-30); Chloride 108 mmol/L (98-107); Estimated CRCL calculation 66 ml/min; Estimated Glomerular Filt Rate > 60; Glucose 219 mg/dL (65-110); Magnesium 2.5 mg/dL (1.6-2.3); Potassium 4.6 mmol/L (3.4-5.0); Sodium 138 mmol/L (137-145); Total Protein 6.3 g/dL (6.3-8.2)
[2024-11-03 07:38] LABS: Glucose Point of Care 202 mg/dl (65-105)
[2024-11-03 07:52] LABS: Creatine Kinase 119 U/L (55-170)
[2024-11-03 08:00] VITALS: PULSE 62; RESP 14; O2SAT 100
[2024-11-03] MEDS: INSULIN ASPART (*BKC) 100 UNITS/ML SUB-Q ×2 (08:25→12:22)
[2024-11-03] MEDS: ENOXAPARIN 40 MG/0.4 ML SYRINGE SUB-Q (08:25)
[2024-11-03 11:55] LABS: Glucose Point of Care 238 mg/dl (65-105)
--- NOTE | 2024-11-03 14:24 | P.DS_ITS ---
DS: Admitting Diagnosis Discharge Date 11/03/2024 Admitting Diagnosis heat exhaustion intractable migraine dm type 2 htn DS: Discharge Diagnosis Discharge Diagnosis (1) Heat exhaustion: Code(s): T67.5XXA - Heat exhaustion, unspecified, initial encounter Status: Acute (2) Intractable migraine: Qualifiers: Migraine type: unspecified Status migrainosus presence: without status migrainosus Qualified Code(s): G43.919 - Migraine, unspecified, intractable, without status migrainosus Code(s): G43.919 - Migraine, unspecified, intractable, without status migrainosus Status: Acute (3) Diabetes type 2: Code(s): E11.9 - Type 2 diabetes mellitus without complications Status: Acute (4) Essential (primary) hypertension: Code(s): I10 - Essential (primary) hypertension Status: Acute DS: Summary Hospital Course Reason for hospitalization: heat exhaustion intractable migraine dm type 2 htn Hospital Course: 69 year old male with past medical history of HTN, HLD, stable lymphoma/lung cancer (diagnosed ~7 years ago, managed at [facility], with a recent oncology follow-up a week ago) and diabetes presented to the hospital for severe, diffuse headache and vomiting. Patient stated that he was working outside in heat for over 8 hours on 11/01. He was initially was sweating however he quit sweating which was similar to his prior heat exhaustion episodes. Patient then went inside and developed nausea and intractable emesis with a headache. He was unable to keep down fluids, food, and medications which prompted him to report to the hospital. Head CT was unremarkable. CK was slightly elevated. BUN/Cr WNL. Patient was not urinating on admission, received IV fluids and at time of discharge UOP was WNL. At time of discharge patient was no longer endorsing a migraine and denied nausea/vomiting. He tolerated his diet well. After further discussion patient stated that he was ready for discharge at this time with plan to follow up with his primary care provider. Patient discharged home with family in a stable condition. He has follow-up with his primary care provider in 1 week. Status at Discharge Functional status at discharge: independent ambulation Time Spent with Patient Time attestation: Total time spent providing and/or coordinating discharge services: Time spent: Greater than 30 minutes Exam Narrative: AF HR 62 RR 14 SPO2 100 BP 128/75 General: male in no acute respiratory distress who is nontoxic appearing, sitting on the side of bed HEENT: Normocephalic. Atraumatic. Extraocular movement intact. Sclera clear and anicteric. No facial asymmetry. Chest: Lungs are clear to auscultation bilaterally. No wheezes or crackles. CV: Heart was regular rate and rhythm. S1/S2. No murmurs, gallops, or rubs. Abd: Abdomen was soft. Nontender. Nondistended. Positive bowel sounds. Ext: No clubbing, cyanosis, or edema. DP pulses bilaterally. Neuro: Patient is alert and oriented x4. Strength is symmetrical in both upper and lower extremities. Speech is clear. Psych: Normal nood and affect. Patient is pleasant and cooperative. DS: Data Data Completed and Pending Completed studies during hospitalization: head ct Labs on day of discharge: Labs from last 24 hours 11/03/24 11/03/24 11/03/24 11:42 07:32 06:55 WBC 10.2 H RBC 4.74 Hgb 14.1 Hct 44.4 MCV 93.7 MCH 29.7 MCHC 31.8 L RDW 13.2 Plt Count 212 MPV 9.7 Immature Gran % (Auto) 0.7 H Neut % (Auto) 89.3 H Lymph % (Auto) 7.5 L Trigg % (Auto) 2.4 L Eos % (Auto) 0.0 Baso % (Auto) 0.1 L Lymph # (Auto) 0.76 L Trigg # (Auto) 0.2 Eos # (Auto) 0.0 Baso # (Auto) 0.0 Abs Immat Gran (auto) 0.07 H Absolute Neuts (auto) 9.1 H Absolute Nucleated RBC 0.000 Nucleated RBC % 0.0 ESR Sodium 138 Potassium 4.6 Chloride 108 H Carbon Dioxide 20 L Anion Gap 10 BUN 16 Creatinine 0.92 Estim Creat Clear Calc 66 Estimated GFR > 60 Glucose 219 H POC Capillary Glucose 238 H 202 H Hemoglobin A1c Calcium 8.7 Magnesium 2.5 H Total Bilirubin 0.6 AST 23 ALT 29 Alkaline Phosphatase 44 Total Creatine Kinase C-Reactive Protein Total Protein 6.3 Albumin 3.9 Urine Color Urine Appearance Urine pH Ur Specific [place] Pk Urine Protein Urine Glucose (UA) Urine Ketones Ur Blood (Man) Urine Nitrate Urine Bilirubin Urine Urobilinogen Leukocyte Esterase Rfl Urine RBC Urine WBC Ur Squamous Epith Cells Urine Bacteria Urine Casts 11/03/24 11/02/24 11/02/24 06:52 18:42 14:21 WBC RBC Hgb Hct MCV MCH MCHC RDW Plt Count MPV Immature Gran % (Auto) Neut % (Auto) Lymph % (Auto) Trigg % (Auto) Eos % (Auto) Baso % (Auto) Lymph # (Auto) Trigg # (Auto) Eos # (Auto) Baso # (Auto) Abs Immat Gran (auto) Absolute Neuts (auto) Absolute Nucleated RBC Nucleated RBC % ESR Sodium Potassium Chloride Carbon Dioxide Anion Gap BUN Creatinine Estim Creat Clear Calc Estimated GFR Glucose POC Capillary Glucose 146 H Hemoglobin A1c Calcium Magnesium Total Bilirubin AST ALT Alkaline Phosphatase Total Creatine Kinase 119 C-Reactive Protein Total Protein Albumin Urine Color Yellow Urine Appearance Clear Urine pH 5.5 Ur Specific [place] 1.028 Urine Protein 1+ H Urine Glucose (UA) 3+ H Urine Ketones 2+ H Ur Blood (Man) Negative Urine Nitrate Negative Urine Bilirubin Negative Urine Urobilinogen 0.2 Leukocyte Esterase Rfl Negative Urine RBC 0-2 Urine WBC 0-5 Ur Squamous Epith Cells None seen Urine Bacteria None seen Urine Casts 0-2 11/02/24 13:34 WBC RBC Hgb Hct MCV MCH MCHC RDW Plt Count MPV Immature Gran % (Auto) Neut % (Auto) Lymph % (Auto) Trigg % (Auto) Eos % (Auto) Baso % (Auto) Lymph # (Auto) Trigg # (Auto) Eos # (Auto) Baso # (Auto) Abs Immat Gran (auto) Absolute Neuts (auto) Absolute Nucleated RBC Nucleated RBC % ESR 8 Sodium Potassium Chloride Carbon Dioxide Anion Gap BUN Creatinine Estim Creat Clear Calc Estimated GFR Glucose POC Capillary Glucose Hemoglobin A1c 6.3 H Calcium Magnesium 1.7 Total Bilirubin AST ALT Alkaline Phosphatase Total Creatine Kinase C-Reactive Protein < 0.5 Total Protein Albumin Urine Color Urine Appearance Urine pH Ur Specific [place] Urine Protein Urine Glucose (UA) Urine Ketones Ur Blood (Man) Urine Nitrate Urine Bilirubin Urine Urobilinogen Leukocyte Esterase Rfl Urine RBC Urine WBC Ur Squamous Epith Cells Urine Bacteria Urine Casts Discharge Plan Discharge Attending physician on discharge: Joyce Boateng Consulting providers: Georgette Robert Discharging Clinician: Georgette Robert Anticipated Discharge Date/Time: 06/26/25 14:20 Patient Disposition: Home Activity: as tolerated Diet: as tolerated and diabetic Discharge Instructions: Discharge disposition: Patient admitted to the hospital for heat exhaustion with intractable migraine and vomiting Migraine and vomiting has resolved Eat well balanced meals and stay hydrated Keep active to remain strong Trend urine output Monitor blood pressures Take caution while standing, rising, or moving Change positions slowly taking a break between each position change If you standing feel dizzy sit back down and take a break Encouraged to continue with yearly vaccinations Return to the emergency department if he developed sudden shortness of breath, chest pain, nausea, vomiting, upset stomach or intractable diarrhea Return to the emergency department if you develop fever greater than 101.5 Follow-up with the primary care physician within 1-2 weeks Thank you for [facility] for your healthcare needs Patient Language: Upper Sorbian Stand Alone Forms: General Discharge Information Follow-up/Referrals: Alton Mcdaniel MD [Primary Care Provider] - 1 Week Discharge Medications: Continued prasterone (DHEA) [DHEA] 25 mg tablet 25 mg PO DAILY testosterone 20.25 mg/1.25 gram (1.62 %) gel in metered-dose pump 2 pump topical .QD Rx Instructions: apply 1 pump amount over max area of EACH upper arm and shoulder Panax ginseng root 518 mg capsule 518 mg PO .QD omega-3 fatty acids 1,250 mg capsule 1,250 mg PO .QD cinnamon bark [Cinnamon] 500 mg capsule 500 mg PO .QD turmeric 400 mg capsule 400 mg PO .QD multivit with min #[id number] 200 mcg-1,000 mcg-10 mg capsule 1 cap PO DAILY zinc sulfate [Orazinc] 50 mg zinc (220 mg) capsule 50 mg PO DAILY saw palmetto 500 mg capsule 500 mg PO DAILY coenzyme Q10 [Co Q-10] 200 mg capsule 200 mg PO DAILY Januvia 100 mg tablet 100 mg PO DAILY Qty: 90 1RF (DME) Contour Test Strips Strip See Rx Instructions .Route Qty: 100 0RF Rx Instructions: Checks glucose once daily atorvastatin 20 mg tablet 10 mg PO DAILY metformin 500 mg tablet extended release 24hr 500 mg PO TID (DME) lancets 31 gauge misc See Rx Instructions .Route Qty: 100 2RF Rx Instructions: As directed up to 4 times a day Date of admission: 11/02/24 19:14 Primary Care Provider: Alton Mcdaniel Admitting Provider: Joyce Boateng Attending physician on admission: Joyce Boateng Condition: Stable Hospitalist MIPS Heart Failure (Exclusion) Patient has history of Heart Transplant or Left Ventricular Assistive Device?: No IF YES, STOP HERE Heart Failure (Qualifier) Patient has current or prior documentation of LVEF less than or equal to 40%, or mod/servere depressed LVSF?: No IF NO, STOP HERE
== END 2024-11-03 14:50 | disposition home or self-care (01) ==
LOC: ANHED 19:26 → ANH3MEDSUR 20:00
PROVIDERS: Nurse Practitioner; Student in an Organized Health Care Education/Training Program; Admitting Provider Internal Medicine; Emergency Provider Physician Assistant; PCP Family Medicine; Visit Provider Internal Medicine
DX: T67.5XXA Heat exhaustion, unspecified, initial encounter (principal); G43.919 Migraine, unspecified, intractable, without status migrainosus; E11.9 Type 2 diabetes mellitus without complications; I10 Essential (primary) hypertension; E78.2 Mixed hyperlipidemia; Z79.84 Long term (current) use of oral hypoglycemic drugs; Z79.899 Other long term (current) drug therapy; Z85.72 Personal history of non-Hodgkin lymphomas
CPT/HCPCS: 36415; 70450; 80053; 81001; 82550; 82948; 83036; 83690; 83735; 85025; 85652; 86140; 93005; 96361; 96374; 96375; 96376; 99285; A9270; G0378; J1100; J1171; J1200; J1650; J1815; J1885; J2405; J2765; J2919; J3475; J7030